=== PATIENT | female | born 1970 | race Caucasian/White ===

== ENCOUNTER 2021-03-13 02:28 | Outpatient (CLI) | payer OTHER, SELFPAY ==
[2021-03-13 12:35] LABS: Source Nasal/Nares
[2021-03-13 15:08] LABS: COVID-19 PCR Negative (Negative)
== END 2021-03-13 02:29 | disposition home or self-care (01) ==
LOC: LBO 02:28
PROVIDERS: Visit Provider Nurse Practitioner Family
DX: Z20.822 Contact with and (suspected) exposure to COVID-19 (principal)
CPT/HCPCS: 87635